=== PATIENT | male | born 1990 | race American Indian/Alaskan Native ===

== ENCOUNTER 2016-09-11 05:23 | Emergency (ER) | payer SELFPAY ==
[2016-09-11 06:18] VITALS: BP 122/74
[2016-09-11 07:08] LABS: Bilirubin,Urine NEG (Negative); Blood,Urine MOD (Negative); Ketones,Urine NEG (Negative); Leukocyte Esterase,Urine NEG (Negative); Mucus,Urine FEW /HPF; Nitrite,Urine NEG (Negative); Protein,Urine <15 mg/dL mg/dL (Negative)
--- NOTE | 2016-09-11 09:06 | Emergency Department Report ---
ED Back Pain/Injury HPI - General Chief Complaint: Back Pain/Injury Stated Complaint: BAD BACK PAIN Time Seen by Provider: 09/11/16 08:22 Source: patient Limitations: No Limitations - History of Present Illness Initial Comments: PT c/o back pain x 2 weeks. PT states he has to stand all day at work. PT states he was at work and his back felt sore. PT states he was sitting in a chair and then laid sideways on a few chairs for a nap, and he woke up 20-25 min later with this pain. PT denies hx of back injury or back problems. PT states he tried taking tylenol 500mg and hyrodcone but no relief. MD Complaint: back pain Onset/Timin -: Gradual, week(s) Similar Symptoms Previously: No Place: work Radiation: none Severity scale (0 -10): 8 (with standing) Quality: sharp, aching Consistency: constant Improves With: supine, sitting upright, other (rest) Worsens With: walking, other (standing ) Context: other (laying in an awkward position ) Associated Symptoms: denies: weakness, numbness, difficulty walking, incontinence, abdominal pain, loss of appetite, nausea/vomiting Treatments Prior to Arrival: acetaminophen, other medications - Related Data Previous Rx's Medication Instructions Recorded Last Taken Type Omeprazole [PriLOSEC] 20 mg PO BID #60 cap 08/27/14 Unknown Rx Ibuprofen [Motrin] 600 mg PO Q8H PRN #15 tablet 09/11/16 Unknown Rx methOCARBAMOL [Robaxin TAB] 500 mg PO Q6H PRN #15 tablet 09/11/16 Unknown Rx Allergies Allergy/AdvReac Type Severity Reaction Status Date / Time No Known Allergies Allergy Verified 08/26/14 18:10 ED Review of Systems ROS: Stated complaint: BAD BACK PAIN Other details as noted in HPI Comment: All other systems reviewed and negative Constitutional: denies: fever, malaise Gastrointestinal: denies: abdominal pain Genitourinary: other (denies incontince ) Musculoskeletal: as per HPI, back pain Skin: denies: rash Neurological: denies: weakness, numbness, paresthesias ED Past Medical Hx - Past Medical History Previous Medical History?: No - Surgical History Past Surgical History?: No - Social History Smoking Status: Never Smoker Substance Use Type: None - Medications Home Medications: Home Medications Medication Instructions Recorded Confirmed Last Taken Type Omeprazole [PriLOSEC] 20 mg PO BID #60 cap 08/27/14 Unknown Rx Ibuprofen [Motrin] 600 mg PO Q8H PRN #15 tablet 09/11/16 Unknown Rx methOCARBAMOL [Robaxin TAB] 500 mg PO Q6H PRN #15 tablet 09/11/16 Unknown Rx ED Physical Exam - General Limitations: No Limitations General appearance: alert, in no apparent distress - Head Head exam: Present: atraumatic, normocephalic, normal inspection - Eye Eye exam: Present: normal appearance, EOMI. Absent: conjunctival injection - ENT ENT exam: Present: normal exam - Neck Neck exam: Present: normal inspection, full ROM. Absent: tenderness - Respiratory Respiratory exam: Present: normal lung sounds bilaterally. Absent: respiratory distress, rales, chest wall tenderness - Cardiovascular Cardiovascular Exam: Present: regular rate, normal rhythm, normal heart sounds - GI/Abdominal GI/Abdominal exam: Present: soft. Absent: tenderness - Extremities Exam Extremities exam: Present: normal inspection, full ROM. Absent: tenderness - Back Exam Back exam: Present: normal inspection, full ROM, other (PT reports pain across l spine and down t-spine, no point tenderness ). Absent: tenderness, CVA tenderness (R), CVA tenderness (L), muscle spasm, paraspinal tenderness, vertebral tenderness - Expanded Back Exam Expanded Back exam: Negative Straight Leg Raising: Left, Right - Neurological Exam Neurological exam: Present: alert, oriented X3, CN II-XII intact, normal gait - Psychiatric Psychiatric exam: Present: normal affect, normal mood - Skin Skin exam: Present: warm, dry, intact, normal color. Absent: rash ED Course Vital Signs 09/11/16 06:14 Temperature 97.9 F Pulse Rate 66 Respiratory 18 Rate Blood Pressure 122/74 [Right] O2 Sat by Pulse 96 Oximetry - Pulse Oximetry Interpretation Digit-Finger Initial Pulse Oximetry Readin Actions Taken: none ED Medical Decision Making - Differential Diagnosis strain, muscle spasm, lbp Critical Care Time: No Critical care attestation.: If time is entered above; I have spent that time in minutes in the direct care of this critically ill patient, excluding procedure time. ED Disposition Clinical Impression: Acute upper back pain Acute back pain Qualifiers: Back pain location: low back pain Back pain laterality: bilateral Sciatica presence: without sciatica Qualified Code(s): M54.5 - Low back pain Disposition: DISCHARGED TO HOME OR SELFCARE Is pt being admited?: No Does the pt Need Aspirin: No Condition: Stable Instructions: Low Back Strain (ED), Acute Low Back Pain (ED), Back Pain (ED) Additional Instructions: No driving or ETOH after taking Robaxin Prescriptions: Ibuprofen [Motrin] 600 mg PO Q8H PRN #15 tablet PRN Reason: Pain methOCARBAMOL [Robaxin TAB] 500 mg PO Q6H PRN #15 tablet PRN Reason: Muscle Spasm Referrals: PRIMARY CAREMD [Primary Care Provider] - 3-5 Days JACOB HERNANDEZ MD, PHD [Staff Physician] - 3-5 Days [facility] [Outside] - 3-5 Days Forms: Work/School Release Form(ED) Time of Disposition: 09:41
== END 2016-09-11 09:47 | disposition home or self-care (01) ==
LOC: ED 05:23
DX: M54.6 Pain in thoracic spine (principal); M54.5 Low back pain
CPT/HCPCS: 81001; 96372; 99283; J2930